=== PATIENT | male | born 1990 | race Caucasian/White ===

== ENCOUNTER 2021-12-31 22:43 | Emergency (ER) | payer SELFPAY ==
[~2021-12-31] VITALS: Ht 165.1 cm; Wt 63.5 kg
--- NOTE | 2021-12-31 22:59 | NUR ---
pt bib ra states he has palpations and took two engergy drinks.
--- NOTE | 2021-12-31 23:05 | NUR ---
Dr. lopez at bedside for mse.
[2021-12-31] MEDS ORDERED: IV NORMAL SALINE 1000 ML BAG IV ONE (23:15)
[2021-12-31 23:27] LABS: MEAN CORPUSCULAR HEMOGLOBIN 28.6 uug (23.8-33.4); MEAN CORPUSCULAR VOLUME 84.1 fL (73.0-96.2); PLATELET COUNT (AUTO) 342 K/uL (152-348)
[2021-12-31 23:31] LABS: CARBON DIOXIDE 28 mmol/L (21-32); CHLORIDE 103 mmol/L (98-107); GLUCOSE 86 mg/dL (74-106); POTASSIUM 3.4 mmol/L (3.5-5.1); UREA NITROGEN, BLOOD 17 mg/dL (7-18)
[2021-12-31 23:51] LABS: ETHANOL < 3 MG/DL (0-0)
--- NOTE | 2022-01-01 01:03 | NUR ---
taxi voucher was provided to the pt and a taxi was called. asked pt to wait in the waiting room for his ride.
[2022-01-01 01:05] VITALS: BP 130/78
== END 2022-01-01 01:21 | disposition home or self-care (01) ==
LOC: ER 22:45
DX: R00.2 Palpitations (principal)
CPT/HCPCS: 80048; 85025; 84484; 36415; 93005; 71045; 99285; 96360; 80320; J7040; A4663; G0480